=== PATIENT | female | born 1965 | race Caucasian/White ===

== ENCOUNTER 2016-09-15 21:51 | Emergency (ER) | payer BC, OTHER ==
[2016-09-15 21:58] VITALS: BP 141/84
--- NOTE | 2016-09-15 22:30 | PHYS DOC ---
Past Medical History Past Medical History: Hypertension Past Surgical History: Tubal ligation Additional Past Surgical Histo: UTERINE OBLATION Alcohol Use: Rarely Drug Use: None Adult General Chief Complaint Chief Complaint: FOOT INJURY PAIN HPI HPI Patient is a 51 year old female presents emergency department stating that she was sitting on her left foot and ankle when she went to get up she rolled the foot and ankle. She states that she is having pain on the fifth tarsal area and just to the left lateral ankle area. She does have swelling noted. She is able to move her toes without difficulty. She is unable to ambulate on the foot and ankle although she can stand and bear weight. She has not taken anything for pain and discomfort she states that she has placed ice packs on the area. Review of Systems Review of Systems Constitutional: Denies fever or chills [] Eyes: Denies change in visual acuity, redness, or eye pain [] HENT: Denies nasal congestion or sore throat [] Respiratory: Denies cough or shortness of breath [] Cardiovascular: No additional information not addressed in HPI [] Musculoskeletal: Denies back pain. C/o left ankle and foot pain and discomfort Integument: Denies rash or skin lesions [] Neurologic: Denies headache, focal weakness or sensory changes [] Allergies Allergies Allergies Coded Allergies Type Severity Reaction Last Updated Verified loratadine Allergy Intermediate RASH 09/15/16 Yes pseudoephedrine Allergy Intermediate RASH 09/15/16 Yes Physical Exam Physical Exam Constitutional: Well developed, well nourished, no acute distress, non-toxic appearance. [] HENT: Normocephalic, atraumatic, bilateral external ears normal, oropharynx moist, no oral exudates, nose normal. [] Eyes: PERRLA, EOMI, conjunctiva normal, no discharge. [] Neck: Normal range of motion, no tenderness, supple, no stridor. [] Cardiovascular:Heart rate regular rhythm Lungs & Thorax: no respiratory distress Skin: Warm, dry, no erythema, no rash. [] Back: No tenderness Extremities: Left lateral ankle and 5th metatarsal tenderness, no cyanosis, no clubbing, ROM intact, no edema. A shunt was noted to have swelling along the fifth metatarsal area. Slight bruising noted. Peripheral pulses 2+ cap refill brisk less than 2 seconds. Good sensation noted Neurologic: Alert and oriented X 3, normal motor function, normal sensory function, no focal deficits noted. [] Psychologic: Affect normal, judgement normal, mood normal. [] Current Patient Data Vital Signs Vital Signs Date Time Temp Pulse Resp B/P Pulse Ox O2 Delivery O2 Flow Rate FiO2 09/15/16 21:58 97.6 94 18 97 Room Air 97.6 EKG EKG [] Radiology/Procedures Radiology/Procedures [] Course & Med Decision Making Course & Med Decision Making Pertinent Labs and Imaging studies reviewed. (See chart for details) X-rays were negative for any fractures or dislocations. X-rays were read by Dr. Jose. Patient will be discharged home in stable condition. Corey wrap will be placed on the area with a postop shoe. Recommendations to her the Corey wrap for the next 5-7 days. Signs and symptoms to return back to emergency department as been provided. Recommended ice packs on several times a day on 20 minutes off 20 minutes. Also recommended Tylenol or ibuprofen for pain and discomfort. She was provided with orthopedic name and number to follow-up with within the week. [] Dragon Disclaimer Dragon Disclaimer This electronic medical record was generated, in whole or in part, using a voice recognition dictation system. Departure Departure Impression: Primary Impression: Sprain of foot, left Additional Impression: Left ankle sprain Disposition: 01 HOME, SELF-CARE Condition: STABLE Referrals: ELVIS LABOY MD Patient Instructions: Ankle Sprain, [id number], Foot Sprain-Brief Additional Instructions: Activity as tolerated Ice packs on 20 minutes and off 20 minutes several times a day Elevation as much as possible Tylenol or Ibuprofen for pain and discomfort Wear the corey wrap for the next 5-7 days, Wear the post op shoe for 5-7 days as well Followup with orthopedic in 5-7 days Return to emergency department as needed for signs and symptoms that become worse. Problem Qualifiers BORIS ORTIZ NP Sep 15, 2016 22:30
--- NOTE | 2016-09-16 08:07 | RAD ---
EXAM: Left ankle, 3 views; left foot, 3 views. HISTORY: Rolled ankle. COMPARISON: None. FINDINGS: Frontal, lateral and mortise views of the left ankle and frontal, lateral and oblique views of the left foot are obtained. There is no fracture, dislocation or subluxation. The ankle mortises intact. IMPRESSION: No acute osseous finding.
== END 2016-09-15 23:10 | disposition home or self-care (01) ==
LOC: ER 21:51
DX: S93.402A Sprain of unspecified ligament of left ankle, initial encounter (principal); S93.602A Unspecified sprain of left foot, initial encounter; I10 Essential (primary) hypertension; Z88.8 Allergy status to other drugs, medicaments and biological substances; X58.XXXA Exposure to other specified factors, initial encounter; Y93.89 Activity, other specified; Y92.89 Other specified places as the place of occurrence of the external cause; Y99.8 Other external cause status
CPT/HCPCS: 73610; 73630; 99284